=== PATIENT | male | born 1945 | race Caucasian/White ===

== ENCOUNTER 2018-12-27 08:07 | Outpatient (CLI) | payer MEDICARE, OTHER ==
[2018-12-27 14:19] LABS: ALT ALANINE AMINOTRANSFERASE 21 IU/L (10-60); AST ASPARTATE AMINOTRANSFERASE 24 IU/L (10-42); CHOL/HDL RATIO 3.8 (<5.0); CHOLESTEROL 138 mg/dL; CREATININE 1.5 mg/dL (0.6-1.2); GFR - MDRD 46 (>89); HDL CHOLESTEROL 36 mg/dL; LDL CHOLESTEROL,CALCULATED 67 mg/dL; LDL/HDL RATIO 1.9 (<3.6); VLDL CHOLESTEROL 35 mg/dL
[2018-12-27 15:45] LABS: HB2 TOTAL 14.8 g/dL; HEMOGLOBIN A1C % 8.3 % (4.6-6.2)
== END 2018-12-27 08:08 | disposition home or self-care (01) ==
LOC: LAB.F 08:07
PROVIDERS: ATTEND Internal Medicine
DX: E11.9 Type 2 diabetes mellitus without complications (principal); E03.9 Hypothyroidism, unspecified; E78.5 Hyperlipidemia, unspecified
CPT/HCPCS: 36415; 80061; 82043; 82565; 83036; 83721; 84443; 84450; 84460

== ENCOUNTER 2019-02-09 08:03 | Outpatient (CLI) | payer MEDICARE, OTHER ==
--- NOTE | 2019-02-09 17:01 | MRI Report ---
Reason: PAIN IN LEFT SHOULDER Procedure Date: 02/09/2019 Accession Number: [id number] / [id number] Procedure: MRI - Shoulder LT W/O CPT Code: FULL RESULT: EXAM: LEFT SHOULDER MRI WITHOUT CONTRAST EXAM DATE: 02/09/2019 08:59 AM. CLINICAL HISTORY: Left shoulder pain. Difficulty raising upper limb and extending it. No history of trauma. COMPARISON: SHOULDER 3 VIEW LT 01/30/2019 3:30 PM. TECHNIQUE: Multiplanar, multisequence T1-weighted and fluid-sensitive sequences of the shoulder without contrast. Other: None. FINDINGS: Acromioclavicular Region: The acromion is type II. The acromioclavicular joint is unremarkable. No subacromial/subdeltoid bursal fluid. Glenohumeral Region: There is a large joint effusion. There is thickening of the synovium consistent with synovitis. There is moderate erosion of the glenohumeral cartilage. Bone Marrow: There is sclerosis and collapse of the head of the humerus at the level of the anatomic neck. The findings suggest prior avascular necrosis or fracture of the anatomic neck. There is severe marrow edema in the greater and lesser tuberosity and proximal humeral shaft. There is early fragmentation of the humeral head. Focal marrow edema in the inferior aspect of the bony glenoid. Labrum: The labrum is unremarkable on this nonarthrographic study. Musculature/Rotator Cuff: There is supraspinatus and infraspinatus tendinosis. There is mild subscapularis tendinosis. There is mild atrophy of supraspinatus and infraspinatus. Biceps Tendon: The long head of the biceps tendon and biceps tasha are intact. Other: The subcutaneous tissues are unremarkable. IMPRESSION: 1. 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 2. Moderate glenohumeral osteoarthritis. [facility] MUSCULOSKELETAL RADIOLOGY SECTION
== END 2019-02-09 08:04 | disposition home or self-care (01) ==
LOC: DI 08:03
PROVIDERS: ATTEND Orthopaedic Surgery Sports Medicine
DX: M19.012 Primary osteoarthritis, left shoulder (principal); M25.412 Effusion, left shoulder; M75.82 Other shoulder lesions, left shoulder

== ENCOUNTER 2019-03-09 13:28 | Outpatient (CLI) | payer MEDICARE, OTHER ==
[2019-03-09] MEDS ORDERED: BUFFERED LIDOCAINE 10 ML SYRINGE ONE (13:46)
[2019-03-09] MEDS ORDERED: IOTHALAMATE MEGLUMINE 50 ML VIAL ONE (13:46)
[2019-03-09] MEDS ORDERED: IOTHALAMATE MEGLUMINE 50 ML VIAL IVP ONE (14:29)
[2019-03-09] MEDS ORDERED: ROPIVACAINE 0.2% PF 20 ML AMPULE SUBQ ONE (14:29)
[2019-03-09] MEDS ORDERED: BUFFERED LIDOCAINE 10 ML SYRINGE IU ONE (14:29)
[2019-03-09] MEDS ORDERED: TRIAMCINOLONE 40 MG/ML VIAL IM ONE (14:29)
--- NOTE | 2019-03-09 15:16 | XRAY Report ---
Reason: STIFFNESS OF LEFT SHOULDER Procedure Date: 03/09/2019 Accession Number: [id number] / [id number] Procedure: [place] - Inj/Aspiration Major Joint CPT Code: FULL RESULT: EXAM:V LEFT SHOULDER STEROID INJECTION WITH FLUOROSCOPIC GUIDANCE EXAM DATE: 03/09/2019 02:17 PM. CLINICAL HISTORY: Stiffness of left shoulder. COMPARISON: None. TECHNIQUE: The risks, benefits, and alternatives of the procedure were discussed with the patient. All questions were answered. Written and verbal consent were obtained. The glenohumeral joint was marked under fluoroscopy and prepped and draped in a sterile manner. Local anesthesia was performed with 1% lidocaine. A 22-gauge needle was then inserted into the glenohumeral joint. 5 mL of a solution containing 1 mL 40 mg triamcinolone and 0.05% ropivacaine 4 mL was then injected. The needle was removed without immediate complication. Other: None. Fluoroscopy Time: 1 second. Number of Images: 3. FINDINGS: Bones and joints: No fracture or subluxation. Injection: Fluoroscopic images demonstrate needle placement and contrast in the glenohumeral joint. No contrast extravasation outside of the glenohumeral joint. IMPRESSION: Successful fluoroscopically guided steroid injection of the shoulder. [facility]
== END 2019-03-09 13:29 | disposition home or self-care (01) ==
LOC: DI 13:28
PROVIDERS: ATTEND Orthopaedic Surgery Sports Medicine
DX: M25.612 Stiffness of left shoulder, not elsewhere classified (principal)
CPT/HCPCS: 20610; Q9961

== ENCOUNTER 2019-06-21 09:14 | Outpatient (CLI) | payer MEDICARE, OTHER ==
[2019-06-21 09:39] LABS: HGB - HEMOGLOBIN 14.3 g/dL (14.0-18.0); MEAN CORPUSCULAR HEMOGLOBIN 31.2 pg (27.0-31.0); MEAN CORPUSCULAR HGB CONC 34.3 g/dL (32.0-36.0); MEAN PLATELET VOLUME 10.3 fL (7.4-11.4); RED BLOOD COUNT 4.58 10^6/uL (4.70-6.10); RED CELL DISTRIBUTION WIDTH 13.3 % (12.0-15.0); WHITE BLOOD COUNT 4.8 x10^3/uL (4.8-10.8)
[2019-06-21 09:50] LABS: INR 1.1 (0.8-1.2); PT - PROTHROMBIN TIME 12.8 secs (9.9-12.6)
[2019-06-21 09:52] LABS: BILIRUBIN,URINE NEGATIVE (NEGATIVE); GLUCOSE, URINE (UA) NEGATIVE (NEGATIVE); KETONES,URINE (UA) NEGATIVE (NEGATIVE); LEUKOCYTE ESTERASE, URINE NEGATIVE (NEGATIVE); NITRITE,URINE NEGATIVE (NEGATIVE); OCCULT BLOOD,URINE NEGATIVE (NEGATIVE); PH,URINE 5.5 PH (5.0-7.5); PROTEIN,URINE NEGATIVE (NEGATIVE); UROBILINOGEN,URINE 0.2 (NORMAL) E.U./dL (NORMAL)
[2019-06-21 09:55] LABS: CLARITY,URINE CLEAR (CLEAR)
[2019-06-21 09:57] LABS: ALBUMIN 4.2 g/dL (3.2-5.5); ALBUMIN/GLOBULIN RATIO 1.5 (1.0-2.2); ALKALINE PHOSPHATASE 74 IU/L (42-121); ALT ALANINE AMINOTRANSFERASE 35 IU/L (10-60); AST ASPARTATE AMINOTRANSFERASE 33 IU/L (10-42); BUN - BLOOD UREA NITROGEN 24 mg/dL (6-20); CALCIUM 9.7 mg/dL (8.5-10.3); CARBON DIOXIDE - CO2 25 mmol/L (21-32); CHLORIDE 105 mmol/L (101-111); CHOL/HDL RATIO 3.4 (<5.0); CHOLESTEROL 129 mg/dL; CREATININE 1.1 mg/dL (0.6-1.2); GFR - MDRD 66 (>89); GLUCOSE 127 mg/dL (70-100); HDL CHOLESTEROL 38 mg/dL; LDL CHOLESTEROL,CALCULATED 68 mg/dL; LDL/HDL RATIO 1.8 (<3.6); SODIUM 141 mmol/L (135-145); VLDL CHOLESTEROL 23 mg/dL
[2019-06-21 09:58] LABS: PARTIAL THROMBOPLASTIN TIME 26.5 secs (24.9-33.3)
[2019-06-21 10:06] LABS: HB2 TOTAL 14.6 g/dL; HEMOGLOBIN A1C 1.25 g/dL
== END 2019-06-21 09:15 | disposition home or self-care (01) ==
LOC: LAB 09:14
PROVIDERS: ATTEND Internal Medicine
DX: Z01.818 Encounter for other preprocedural examination (principal); M19.112 Post-traumatic osteoarthritis, left shoulder; E11.9 Type 2 diabetes mellitus without complications; Z79.4 Long term (current) use of insulin; E78.5 Hyperlipidemia, unspecified; E03.9 Hypothyroidism, unspecified
CPT/HCPCS: 36415; 80053; 80061; 81001; 81003; 83036; 83721; 84443; 85027; 85610; 85730; 87086; 87640

== ENCOUNTER 2019-07-31 07:43 | Outpatient (CLI) | payer MEDICARE, OTHER ==
[2019-07-31 08:14] LABS: BILIRUBIN,URINE NEGATIVE (NEGATIVE); GLUCOSE, URINE (UA) NEGATIVE (NEGATIVE); KETONES,URINE (UA) NEGATIVE (NEGATIVE); LEUKOCYTE ESTERASE, URINE NEGATIVE (NEGATIVE); NITRITE,URINE NEGATIVE (NEGATIVE); OCCULT BLOOD,URINE NEGATIVE (NEGATIVE); PROTEIN,URINE NEGATIVE (NEGATIVE); UROBILINOGEN,URINE 0.2 (NORMAL) E.U./dL (NORMAL)
[2019-07-31 08:20] LABS: CLARITY,URINE CLEAR (CLEAR)
[2019-07-31 08:29] LABS: INR 1.2 (0.8-1.2); PT - PROTHROMBIN TIME 13.1 secs (9.9-12.6)
[2019-07-31 08:37] LABS: ALBUMIN 4.4 g/dL (3.2-5.5); ALBUMIN/GLOBULIN RATIO 1.6 (1.0-2.2); ALKALINE PHOSPHATASE 61 IU/L (42-121); ALT ALANINE AMINOTRANSFERASE 32 IU/L (10-60); AST ASPARTATE AMINOTRANSFERASE 36 IU/L (10-42); BILIRUBIN,TOTAL 0.8 mg/dL (0.2-1.0); BUN - BLOOD UREA NITROGEN 31 mg/dL (6-20); CARBON DIOXIDE - CO2 27 mmol/L (21-32); CHLORIDE 106 mmol/L (101-111); CHOL/HDL RATIO 3.3 (<5.0); CHOLESTEROL 113 mg/dL; CREATININE 1.3 mg/dL (0.6-1.2); GFR - MDRD 54 (>89); GLUCOSE 116 mg/dL (70-100); HDL CHOLESTEROL 34 mg/dL; LDL CHOLESTEROL,CALCULATED 62 mg/dL; LDL/HDL RATIO 1.8 (<3.6); PARTIAL THROMBOPLASTIN TIME 30.4 secs (24.9-33.3); SODIUM 140 mmol/L (135-145); TOTAL PROTEIN 7.1 g/dL (6.7-8.2); VLDL CHOLESTEROL 17 mg/dL
[2019-07-31 08:43] LABS: HB2 TOTAL 14.1 g/dL; HEMOGLOBIN A1C 0.73 g/dL; HEMOGLOBIN A1C % 6.9 % (4.6-6.2)
[2019-07-31 08:44] LABS: HGB - HEMOGLOBIN 13.5 g/dL (14.0-18.0); MEAN CORPUSCULAR HEMOGLOBIN 30.1 pg (27.0-31.0); MEAN CORPUSCULAR HGB CONC 33.2 g/dL (32.0-36.0); MEAN CORPUSCULAR VOLUME 90.8 fL (80.0-94.0); MEAN PLATELET VOLUME 10.7 fL (7.4-11.4); RED BLOOD COUNT 4.48 10^6/uL (4.70-6.10); RED CELL DISTRIBUTION WIDTH 13.3 % (12.0-15.0); WHITE BLOOD COUNT 3.8 x10^3/uL (4.8-10.8)
== END 2019-07-31 07:44 | disposition home or self-care (01) ==
LOC: LAB 07:43
PROVIDERS: ATTEND Internal Medicine
DX: E11.9 Type 2 diabetes mellitus without complications (principal); Z79.4 Long term (current) use of insulin; E78.5 Hyperlipidemia, unspecified; M19.112 Post-traumatic osteoarthritis, left shoulder; T14.90XS Injury, unspecified, sequela; E03.9 Hypothyroidism, unspecified
CPT/HCPCS: 36415; 80053; 80061; 81001; 81003; 83036; 83721; 84443; 85027; 85610; 85730; 87086

== ENCOUNTER 2020-02-28 07:59 | Outpatient (CLI) | payer MEDICARE, OTHER ==
[2020-02-28 08:26] LABS: HB2 TOTAL 13.9 g/dL; HEMOGLOBIN A1C 0.63 g/dL; HEMOGLOBIN A1C % 6.3 % (4.6-6.2)
[2020-02-28 08:29] LABS: ALBUMIN 4.3 g/dL (3.2-5.5); ALBUMIN/GLOBULIN RATIO 1.6 (1.0-2.2); ALKALINE PHOSPHATASE 64 IU/L (42-121); ALT ALANINE AMINOTRANSFERASE 29 IU/L (10-60); AST ASPARTATE AMINOTRANSFERASE 33 IU/L (10-42); BILIRUBIN,TOTAL 0.8 mg/dL (0.2-1.0); BUN - BLOOD UREA NITROGEN 30 mg/dL (6-20); CALCIUM 8.5 mg/dL (8.5-10.3); CARBON DIOXIDE - CO2 26 mmol/L (21-32); CHLORIDE 107 mmol/L (101-111); CHOL/HDL RATIO 4.2 (<5.0); CHOLESTEROL 126 mg/dL; CREATININE 1.5 mg/dL (0.6-1.2); GLUCOSE 119 mg/dL (70-100); HDL CHOLESTEROL 30 mg/dL; LDL CHOLESTEROL,CALCULATED 59 mg/dL; SODIUM 137 mmol/L (135-145); VLDL CHOLESTEROL 37 mg/dL
== END 2020-02-28 08:00 | disposition home or self-care (01) ==
LOC: LAB 07:59
PROVIDERS: ATTEND Internal Medicine
DX: E78.5 Hyperlipidemia, unspecified (principal); E11.9 Type 2 diabetes mellitus without complications; E03.9 Hypothyroidism, unspecified; Z79.4 Long term (current) use of insulin
CPT/HCPCS: 36415; 80053; 80061; 83036; 83721; 84443

== ENCOUNTER 2020-07-29 08:32 | Outpatient (CLI) | payer MEDICARE, OTHER ==
[2020-07-29 09:11] LABS: ALBUMIN 3.4 g/dL (3.2-5.5); ALBUMIN/GLOBULIN RATIO 1.3 (1.0-2.2); ALKALINE PHOSPHATASE 57 IU/L (42-121); ALT ALANINE AMINOTRANSFERASE 24 IU/L (10-60); AST ASPARTATE AMINOTRANSFERASE 29 IU/L (10-42); BUN - BLOOD UREA NITROGEN 22 mg/dL (6-20); CARBON DIOXIDE - CO2 28 mmol/L (21-32); CHLORIDE 98 mmol/L (101-111); CHOLESTEROL 143 mg/dL; CREATININE 1.3 mg/dL (0.6-1.2); GLUCOSE 144 mg/dL (70-100); HDL CHOLESTEROL 36 mg/dL; LDL CHOLESTEROL,CALCULATED 78 mg/dL; LDL/HDL RATIO 2.2 (<3.6); SODIUM 135 mmol/L (135-145); VLDL CHOLESTEROL 29 mg/dL
[2020-07-29 10:11] LABS: HEMOGLOBIN A1c% 6.9 % (4.27-6.07)
== END 2020-07-29 08:33 | disposition home or self-care (01) ==
LOC: LAB 08:32
PROVIDERS: ATTEND Internal Medicine
DX: E78.5 Hyperlipidemia, unspecified (principal); E11.9 Type 2 diabetes mellitus without complications; Z79.4 Long term (current) use of insulin; E03.9 Hypothyroidism, unspecified
CPT/HCPCS: 36415; 80053; 80061; 83036; 83721; 84443

== ENCOUNTER 2020-12-18 08:04 | Outpatient (CLI) | payer MEDICARE, OTHER ==
[2020-12-18 08:38] LABS: BASOPHILS % (AUTO) 1.1 %; EOSINOPHILS # (AUTO) 0.2 10^3/uL (0.0-0.7); EOSINOPHILS % (AUTO) 5.6 %; LYMPHOCYTES # (AUTO) 0.3 10^3/uL (1.5-3.5); LYMPHOCYTES % (AUTO) 7.8 %; MEAN CORPUSCULAR HEMOGLOBIN 31.6 pg (27.0-31.0); MEAN CORPUSCULAR HGB CONC 34.3 g/dL (32.0-36.0); MEAN PLATELET VOLUME 10.3 fL (7.4-11.4); MONOCYTES # (AUTO) 0.3 10^3/uL (0.0-1.0); MONOCYTES % (AUTO) 8.9 %; NEUTROPHILS # (AUTO) 2.7 10^3/uL (1.5-6.6); NEUTROPHILS % (AUTO) 76.3 %; PLT - PLATELET COUNT 122 10^3/uL (130-450); RED BLOOD COUNT 4.75 10^6/uL (4.70-6.10); RED CELL DISTRIBUTION WIDTH 13.1 % (12.0-15.0); WHITE BLOOD COUNT 3.6 x10^3/uL (4.8-10.8)
[2020-12-18 09:23] LABS: ALBUMIN/GLOBULIN RATIO 1.4 (1.0-2.2); ALKALINE PHOSPHATASE 88 IU/L (42-121); ALT ALANINE AMINOTRANSFERASE 28 IU/L (10-60); AST ASPARTATE AMINOTRANSFERASE 34 IU/L (10-42); BILIRUBIN,TOTAL 0.7 mg/dL (0.2-1.0); BUN - BLOOD UREA NITROGEN 18 mg/dL (6-20); CALCIUM 8.6 mg/dL (8.5-10.3); CARBON DIOXIDE - CO2 23 mmol/L (21-32); CHLORIDE 104 mmol/L (101-111); CHOL/HDL RATIO 5.1 (<5.0); CHOLESTEROL 163 mg/dL; CREATININE 1.2 mg/dL (0.6-1.2); GLUCOSE 262 mg/dL (70-100); HDL CHOLESTEROL 32 mg/dL; LDL CHOLESTEROL,CALCULATED 57 mg/dL; LDL/HDL RATIO 1.8 (<3.6); TOTAL PROTEIN 5.2 g/dL (6.7-8.2); VLDL CHOLESTEROL 74 mg/dL
[2020-12-18 12:46] LABS: FREE T4 (FREE THYROXINE) 0.95 ng/dL (0.58-1.64)
[2020-12-18 12:51] LABS: HEMOGLOBIN A1c% 9.1 % (4.27-6.07)
== END 2020-12-18 08:05 | disposition home or self-care (01) ==
LOC: LAB 08:04
PROVIDERS: ATTEND Internal Medicine
DX: E11.9 Type 2 diabetes mellitus without complications (principal); I10 Essential (primary) hypertension; E78.5 Hyperlipidemia, unspecified; E03.9 Hypothyroidism, unspecified; Z79.4 Long term (current) use of insulin
CPT/HCPCS: 36415; 80053; 80061; 83036; 83721; 84439; 84443; 85025

== ENCOUNTER 2021-03-26 07:36 | Outpatient (CLI) | payer MEDICARE, OTHER ==
[2021-03-26 07:56] LABS: BASOPHILS % (AUTO) 0.9 %; EOSINOPHILS # (AUTO) 0.3 10^3/uL (0.0-0.7); EOSINOPHILS % (AUTO) 5.8 %; HCT - HEMATOCRIT 39.6 % (42.0-52.0); HGB - HEMOGLOBIN 13.6 g/dL (14.0-18.0); LYMPHOCYTES # (AUTO) 0.3 10^3/uL (1.5-3.5); LYMPHOCYTES % (AUTO) 7.4 %; MEAN CORPUSCULAR HEMOGLOBIN 30.7 pg (27.0-31.0); MEAN CORPUSCULAR HGB CONC 34.3 g/dL (32.0-36.0); MEAN CORPUSCULAR VOLUME 89.4 fL (80.0-94.0); MEAN PLATELET VOLUME 9.9 fL (7.4-11.4); MONOCYTES # (AUTO) 0.4 10^3/uL (0.0-1.0); MONOCYTES % (AUTO) 8.5 %; NEUTROPHILS # (AUTO) 3.3 10^3/uL (1.5-6.6); NEUTROPHILS % (AUTO) 76.2 %; PLT - PLATELET COUNT 140 10^3/uL (130-450); RED BLOOD COUNT 4.43 10^6/uL (4.70-6.10); RED CELL DISTRIBUTION WIDTH 12.7 % (12.0-15.0); WHITE BLOOD COUNT 4.3 x10^3/uL (4.8-10.8)
[2021-03-26 08:13] LABS: ALBUMIN 3.4 g/dL (3.2-5.5); ALBUMIN/GLOBULIN RATIO 1.4 (1.0-2.2); ALKALINE PHOSPHATASE 87 IU/L (42-121); ALT ALANINE AMINOTRANSFERASE 26 IU/L (10-60); AST ASPARTATE AMINOTRANSFERASE 26 IU/L (10-42); BILIRUBIN,TOTAL 0.9 mg/dL (0.2-1.0); BUN - BLOOD UREA NITROGEN 21 mg/dL (6-20); CALCIUM 8.8 mg/dL (8.5-10.3); CARBON DIOXIDE - CO2 25 mmol/L (21-32); CHLORIDE 107 mmol/L (101-111); CHOL/HDL RATIO 4.6 (<5.0); CHOLESTEROL 128 mg/dL; CREATININE 0.9 mg/dL (0.6-1.2); GFR - MDRD 82 (>89); GLUCOSE 197 mg/dL (70-100); HDL CHOLESTEROL 28 mg/dL; LDL CHOLESTEROL,CALCULATED 58 mg/dL; LDL/HDL RATIO 2.1 (<3.6); POTASSIUM 4.6 mmol/L (3.5-5.0); SODIUM 138 mmol/L (135-145); TOTAL PROTEIN 5.9 g/dL (6.7-8.2); TRIGLYCERIDES 210 mg/dL; VLDL CHOLESTEROL 42 mg/dL
[2021-03-26 08:23] LABS: THYROID STIMULATING HORMONE 5.72 uIU/mL (0.34-5.60)
[2021-03-26 08:55] LABS: FREE T4 (FREE THYROXINE) 0.98 ng/dL (0.58-1.64)
[2021-03-26 11:07] LABS: ESTIMATED AVERAGE GLUCOSE 157 mg/dL (70-100); HEMOGLOBIN A1c% 7.1 % (4.27-6.07)
== END 2021-03-26 07:37 | disposition home or self-care (01) ==
LOC: LAB 07:36
PROVIDERS: ATTEND Internal Medicine
DX: I10 Essential (primary) hypertension (principal); E11.9 Type 2 diabetes mellitus without complications; E78.5 Hyperlipidemia, unspecified; E03.9 Hypothyroidism, unspecified
CPT/HCPCS: 36415; 80053; 80061; 83036; 83721; 84439; 84443; 85025

== ENCOUNTER 2021-04-28 09:51 | Outpatient (CLI) | payer MEDICARE, OTHER | END 2021-04-28 09:52 | disposition home or self-care (01) | LOC: LAB 09:51 | PROVIDERS: ATTEND Urology | DX: Z85.46 Personal history of malignant neoplasm of prostate (principal); Z90.79 Acquired absence of other genital organ(s) | CPT/HCPCS: 36415; 84153 ==

== ENCOUNTER 2021-06-25 07:14 | Outpatient (CLI) | payer MEDICARE, OTHER ==
[2021-06-25] MEDS ORDERED: IOVERSOL 320 50 ML VIAL ONE (07:28)
[2021-06-25] MEDS ORDERED: IOPAMIDOL-300 100 ML VIAL ONE (07:28)
[2021-06-25 07:59] LABS: BASOPHILS % (AUTO) 0.9 %; EOSINOPHILS # (AUTO) 0.3 10^3/uL (0.0-0.7); EOSINOPHILS % (AUTO) 6.9 %; HCT - HEMATOCRIT 44.5 % (42.0-52.0); HGB - HEMOGLOBIN 15.2 g/dL (14.0-18.0); LYMPHOCYTES # (AUTO) 0.4 10^3/uL (1.5-3.5); LYMPHOCYTES % (AUTO) 9.4 %; MEAN CORPUSCULAR HEMOGLOBIN 29.9 pg (27.0-31.0); MEAN CORPUSCULAR HGB CONC 34.2 g/dL (32.0-36.0); MEAN CORPUSCULAR VOLUME 87.4 fL (80.0-94.0); MEAN PLATELET VOLUME 10.8 fL (7.4-11.4); MONOCYTES # (AUTO) 0.4 10^3/uL (0.0-1.0); MONOCYTES % (AUTO) 8.7 %; NEUTROPHILS # (AUTO) 3.3 10^3/uL (1.5-6.6); NEUTROPHILS % (AUTO) 73.9 %; PLT - PLATELET COUNT 101 10^3/uL (130-450); RED BLOOD COUNT 5.09 10^6/uL (4.70-6.10); RED CELL DISTRIBUTION WIDTH 12.2 % (12.0-15.0); WHITE BLOOD COUNT 4.5 x10^3/uL (4.8-10.8)
[2021-06-25 08:37] LABS: ALBUMIN 3.4 g/dL (3.2-5.5); ALBUMIN/GLOBULIN RATIO 1.4 (1.0-2.2); ALKALINE PHOSPHATASE 76 IU/L (42-121); ALT ALANINE AMINOTRANSFERASE 29 IU/L (10-60); AST ASPARTATE AMINOTRANSFERASE 31 IU/L (10-42); BUN - BLOOD UREA NITROGEN 16 mg/dL (6-20); CALCIUM 8.9 mg/dL (8.5-10.3); CARBON DIOXIDE - CO2 26 mmol/L (21-32); CHLORIDE 103 mmol/L (101-111); CHOL/HDL RATIO 4.7 (<5.0); CHOLESTEROL 168 mg/dL; GFR - MDRD 73 (>89); GLUCOSE 307 mg/dL (70-100); HDL CHOLESTEROL 36 mg/dL; LDL CHOLESTEROL,CALCULATED 99 mg/dL; LDL/HDL RATIO 2.8 (<3.6); POTASSIUM 4.3 mmol/L (3.5-5.0); SODIUM 137 mmol/L (135-145); TOTAL PROTEIN 5.8 g/dL (6.7-8.2); TRIGLYCERIDES 163 mg/dL; VLDL CHOLESTEROL 33 mg/dL
[2021-06-25 08:49] LABS: THYROID STIMULATING HORMONE 5.93 uIU/mL (0.34-5.60)
[2021-06-25] MEDS ORDERED: IOVERSOL 320 50 ML VIAL PO ONE (09:09)
[2021-06-25] MEDS ORDERED: IOPAMIDOL-300 100 ML VIAL IVP ONE (09:10)
[2021-06-25 09:33] LABS: FREE T4 (FREE THYROXINE) 0.86 ng/dL (0.58-1.64)
--- NOTE | 2021-06-25 10:15 | CT Report ---
PROCEDURE: Abdomen/Pelvis W INDICATIONS: ABD PAIN CONTRAST: IV CONTRAST: Isovue 300 ml: 100 PO CONTRAST: Optiray 320 ml50 TECHNIQUE: After the administration of oral and intravenous contrast, 5 mm thick sections acquired from the diap hragms to the symphysis. 5 mm thick coronal and sagittal reformats were acquired. For radiation dos e reduction, the following was used: automated exposure control, adjustment of mA and/or kV accordin g to patient size. COMPARISON: None. FINDINGS: Image quality: Excellent. ABDOMEN: Lung bases: Lung bases are clear. Heart size is normal. Solid organs: Liver is within normal limits in size. Question of hepatic steatosis. No focal lesion. Gallbladder is not distended. Multiple gallstones Biliary system is non dilated. Pancreas enhances normally. Splenomegaly measuring 17.1 cm, (6/38). No adrenal nodules. Kidneys enhance symmetrically . There is multifocal scarring of the right kidney. No solid renal mass. Peritoneum and bowel: There is stranding about the right and transverse colon. There is associated c olonic wall thickening. Small volume free fluid. The stomach is distended with oral contrast. There i s no small bowel obstruction. Oral contrast transits to the level of the cecum. The appendix is not d istended. Nodes and vessels: Prominent mesenteric lymph nodes. No enlarged retroperitoneal lymph nodes. Clips i n the right abdomen. Bilateral pelvic sidewall lymph node dissection. Minimal aortic ectasia. Circumf erential calcified atherosclerotic plaque. Miscellaneous: No ventral hernias. PELVIS: Genitourinary: Bladder is only partially distended. Increased density of the urine. There is a mean prosthesis with a reservoir in the right lower quadrant. Prostate gland appears to be surgically abse nt. Miscellaneous: No inguinal hernias or adenopathy. Bones: No suspicious bony lesions. Mild degenerative change. No vertebral body compression fractures . IMPRESSION: 1. Suspect right/proximal transverse colitis. Mild ascites. No pneumoperitoneum. 2. Prominent mesenteric lymph nodes. Suspect reactive etiology. 3. Prostatectomy. Pelvic sidewall lymph node dissection. No sclerotic osseous lesions seen. Penile pr osthesis. 4. Gallstones. 5. Right renal scarring. No hydronephrosis. 6. Splenomegaly. Preliminary results were conveyed to Jasmin on behalf of Dr. Hu at 06/25/2021 10:06 AM PDT. Reviewed by: Gustavo Grady MD on 06/25/2021 10:14 AM PDT Approved by: Gustavo Grady MD on 06/25/2021 10:14 AM PDT Station ID: [id number]
[2021-06-25 12:24] LABS: ESTIMATED AVERAGE GLUCOSE 232 mg/dL (70-100); HEMOGLOBIN A1c% 9.7 % (4.27-6.07)
== END 2021-06-25 07:15 | disposition home or self-care (01) ==
LOC: LAB 07:14
PROVIDERS: ATTEND Internal Medicine
DX: I10 Essential (primary) hypertension (principal); R10.9 Unspecified abdominal pain; E78.5 Hyperlipidemia, unspecified; E11.9 Type 2 diabetes mellitus without complications; E03.9 Hypothyroidism, unspecified; Z79.4 Long term (current) use of insulin; R18.8 Other ascites; R59.0 Localized enlarged lymph nodes; Z90.79 Acquired absence of other genital organ(s); Z96.0 Presence of urogenital implants; K80.20 Calculus of gallbladder without cholecystitis without obstruction; R16.1 Splenomegaly, not elsewhere classified
CPT/HCPCS: 36415; 74177; 80053; 80061; 83036; 84439; 84443; 85025; Q9967; 83721

== ENCOUNTER 2021-06-28 08:00 | Outpatient (CLI) | payer MEDICARE, OTHER ==
[2021-07-02 10:00] LABS: FECAL OCCULT BLOOD (FIT) NEGATIVE (NEGATIVE)
== END 2021-06-28 23:59 | disposition home or self-care (01) ==
LOC: LAB.R 08:00
PROVIDERS: ATTEND Internal Medicine
DX: Z12.11 Encounter for screening for malignant neoplasm of colon (principal)
CPT/HCPCS: 82274

== ENCOUNTER 2021-09-15 08:00 | Outpatient (CLI) | payer MEDICARE, OTHER ==
[2021-09-15 09:00] LABS: EOSINOPHILS # (AUTO) 0.2 10^3/uL (0.0-0.7); EOSINOPHILS % (AUTO) 5.5 %; HGB - HEMOGLOBIN 13.8 g/dL (14.0-18.0); LYMPHOCYTES # (AUTO) 0.4 10^3/uL (1.5-3.5); LYMPHOCYTES % (AUTO) 8.9 %; MEAN CORPUSCULAR HEMOGLOBIN 29.9 pg (27.0-31.0); MEAN CORPUSCULAR HGB CONC 33.7 g/dL (32.0-36.0); MEAN CORPUSCULAR VOLUME 88.9 fL (80.0-94.0); MEAN PLATELET VOLUME 10.5 fL (7.4-11.4); MONOCYTES # (AUTO) 0.3 10^3/uL (0.0-1.0); MONOCYTES % (AUTO) 8.2 %; NEUTROPHILS # (AUTO) 3.1 10^3/uL (1.5-6.6); NEUTROPHILS % (AUTO) 76.2 %; PLT - PLATELET COUNT 89 10^3/uL (130-450); RED BLOOD COUNT 4.61 10^6/uL (4.70-6.10); RED CELL DISTRIBUTION WIDTH 13.3 % (12.0-15.0)
[2021-09-15 09:04] LABS: CREATININE,URINE 261.7 mg/dL; MICROALBUM/CREATININE RATIO,UR 8.4 ug/mg (<30.0); MICROALBUMIN,URINE 2.2 mg/dL (0-300.0)
[2021-09-15 09:29] LABS: ALBUMIN 3.7 g/dL (3.2-5.5); ALBUMIN/GLOBULIN RATIO 1.5 (1.0-2.2); BILIRUBIN,TOTAL 1.2 mg/dL (0.2-1.0); CALCIUM 9.5 mg/dL (8.5-10.3); POTASSIUM 4.3 mmol/L (3.5-5.0); TOTAL PROTEIN 6.1 g/dL (6.7-8.2)
[2021-09-15 09:54] LABS: INR 1.2 (0.8-1.2); PT - PROTHROMBIN TIME 13.1 secs (9.9-12.6)
[2021-09-15 13:24] LABS: ESTIMATED AVERAGE GLUCOSE 212 mg/dL (70-100)
[2021-09-16 09:21] LABS: HEPATITIS B SURFACE ANTIGEN NON-REACTIVE (NON-REACTIVE)
[2021-09-16 09:22] LABS: HEPATITIS B CORE AB TOTAL REACTIVE (NON-REACTIVE)
[2021-09-17 10:01] LABS: IMMUNOGLOBULIN A 211 mg/dL (70-320); IMMUNOGLOBULIN G 528 mg/dL (600-1540); IMMUNOGLOBULIN M 74 mg/dL (50-300)
[2021-09-17 13:36] LABS: CERULOPLASMIN 27 mg/dL (18-36)
[2021-09-19 07:52] LABS: ANA PATTERN Nuclear, Homogeneous; ANA SCREEN POSITIVE (NEGATIVE)
[2021-09-23 22:06] LABS: HEPATITIS C VIRAL RNA GENOTYPE NOT DETECTED
== END 2021-09-15 08:01 | disposition home or self-care (01) ==
LOC: LAB 08:00
PROVIDERS: ATTEND Internal Medicine Gastroenterology
DX: E11.9 Type 2 diabetes mellitus without complications (principal); D69.6 Thrombocytopenia, unspecified; K74.60 Unspecified cirrhosis of liver; R93.3 Abnormal findings on diagnostic imaging of other parts of digestive tract; E03.9 Hypothyroidism, unspecified; Z79.4 Long term (current) use of insulin
CPT/HCPCS: 36415; 80053; 81599; 82043; 82104; 82105; 82390; 82570; 82784; 83036; 83516; 83520; 83540; 84443; 84466; 85025; 85610; 86038; 86317; 86376; 86704; 87340; 87350; 87902

== ENCOUNTER 2022-02-02 07:27 | Outpatient (CLI) | payer MEDICARE, OTHER ==
[2022-02-02 07:47] LABS: BASOPHILS % (AUTO) 0.9 %; EOSINOPHILS # (AUTO) 0.2 10^3/uL (0.0-0.7); EOSINOPHILS % (AUTO) 4.4 %; HCT - HEMATOCRIT 43.8 % (42.0-52.0); HGB - HEMOGLOBIN 14.9 g/dL (14.0-18.0); LYMPHOCYTES # (AUTO) 0.4 10^3/uL (1.5-3.5); LYMPHOCYTES % (AUTO) 9.5 %; MEAN CORPUSCULAR VOLUME 88.3 fL (80.0-94.0); MONOCYTES # (AUTO) 0.4 10^3/uL (0.0-1.0); MONOCYTES % (AUTO) 8.6 %; NEUTROPHILS # (AUTO) 3.5 10^3/uL (1.5-6.6); NEUTROPHILS % (AUTO) 76.4 %; PLT - PLATELET COUNT 93 10^3/uL (130-450); RED BLOOD COUNT 4.96 10^6/uL (4.70-6.10); RED CELL DISTRIBUTION WIDTH 13.2 % (12.0-15.0); WHITE BLOOD COUNT 4.6 x10^3/uL (4.8-10.8)
[2022-02-02 08:10] LABS: ALBUMIN 3.7 g/dL (3.2-5.5); ALBUMIN/GLOBULIN RATIO 1.4 (1.0-2.2); BILIRUBIN,TOTAL 1.4 mg/dL (0.2-1.0); CALCIUM 8.7 mg/dL (8.5-10.3); POTASSIUM 4.2 mmol/L (3.5-5.0); TOTAL PROTEIN 6.3 g/dL (6.7-8.2)
[2022-02-02 08:26] LABS: THYROID STIMULATING HORMONE 3.97 uIU/mL (0.34-5.60)
[2022-02-02 12:21] LABS: ESTIMATED AVERAGE GLUCOSE 200 mg/dL (70-100); HEMOGLOBIN A1c% 8.6 % (4.27-6.07)
== END 2022-02-02 07:28 | disposition home or self-care (01) ==
LOC: LAB 07:27
PROVIDERS: ATTEND Internal Medicine
DX: E11.9 Type 2 diabetes mellitus without complications (principal); E03.9 Hypothyroidism, unspecified; Z79.4 Long term (current) use of insulin
CPT/HCPCS: 36415; 80053; 83036; 84443; 85025

== ENCOUNTER 2022-08-23 07:21 | Outpatient (CLI) | payer MEDICARE, OTHER ==
[2022-08-23 07:51] LABS: BASOPHILS # (AUTO) 0.1 10^3/uL (0.0-0.1); BASOPHILS % (AUTO) 1.3 %; EOSINOPHILS # (AUTO) 0.2 10^3/uL (0.0-0.7); EOSINOPHILS % (AUTO) 5.8 %; HCT - HEMATOCRIT 38.8 % (42.0-52.0); HGB - HEMOGLOBIN 13.4 g/dL (14.0-18.0); LYMPHOCYTES # (AUTO) 0.5 10^3/uL (1.5-3.5); LYMPHOCYTES % (AUTO) 11.9 %; MEAN CORPUSCULAR HEMOGLOBIN 29.6 pg (27.0-31.0); MEAN CORPUSCULAR HGB CONC 34.5 g/dL (32.0-36.0); MEAN CORPUSCULAR VOLUME 85.7 fL (80.0-94.0); MEAN PLATELET VOLUME 10.3 fL (7.4-11.4); MONOCYTES # (AUTO) 0.4 10^3/uL (0.0-1.0); MONOCYTES % (AUTO) 9.5 %; NEUTROPHILS # (AUTO) 2.7 10^3/uL (1.5-6.6); NEUTROPHILS % (AUTO) 70.4 %; PLT - PLATELET COUNT 74 10^3/uL (130-450); RED BLOOD COUNT 4.53 10^6/uL (4.70-6.10); RED CELL DISTRIBUTION WIDTH 14.2 % (12.0-15.0); WHITE BLOOD COUNT 3.8 x10^3/uL (4.8-10.8)
[2022-08-23 08:09] LABS: MICROALBUM/CREATININE RATIO,UR 25.9 ug/mg (<30.0); MICROALBUMIN,URINE 8.9 mg/dL (0-300.0)
[2022-08-23 08:19] LABS: % IRON SATURATION 14 % (20-50); ALBUMIN 3.8 g/dL (3.2-5.5); ALBUMIN/GLOBULIN RATIO 1.5 (1.0-2.2); ALKALINE PHOSPHATASE 94 IU/L (42-121); ALT ALANINE AMINOTRANSFERASE 31 IU/L (10-60); AST ASPARTATE AMINOTRANSFERASE 31 IU/L (10-42); BILIRUBIN,TOTAL 1.2 mg/dL (0.2-1.0); BUN - BLOOD UREA NITROGEN 18 mg/dL (6-20); CALCIUM 9.3 mg/dL (8.5-10.3); CARBON DIOXIDE - CO2 30 mmol/L (21-32); CHLORIDE 104 mmol/L (101-111); CHOL/HDL RATIO 2.9 (<5.0); CHOLESTEROL 109 mg/dL; GFR - MDRD 73 (>89); GLUCOSE 208 mg/dL (70-100); HDL CHOLESTEROL 37 mg/dL; IRON 48 ug/dL (45-182); LDL CHOLESTEROL,CALCULATED 48 mg/dL; LDL/HDL RATIO 1.3 (<3.6); SODIUM 138 mmol/L (135-145); TOTAL IRON BINDING CAPACITY 354 ug/dL (250-450); TOTAL PROTEIN 6.4 g/dL (6.7-8.2); TRANSFERRIN 253 mg/dL (180-329); TRIGLYCERIDES 122 mg/dL; VLDL CHOLESTEROL 24 mg/dL
[2022-08-23 08:25] LABS: THYROID STIMULATING HORMONE 3.67 uIU/mL (0.34-5.60)
[2022-08-23 08:29] LABS: FERRITIN 81.6 ng/mL (23.9-336.2)
[2022-08-23 12:29] LABS: ESTIMATED AVERAGE GLUCOSE 226 mg/dL (70-100); HEMOGLOBIN A1c% 9.5 % (4.27-6.07)
== END 2022-08-23 07:22 | disposition home or self-care (01) ==
LOC: LAB 07:21
PROVIDERS: ATTEND Internal Medicine
DX: C61 Malignant neoplasm of prostate (principal); K74.69 Other cirrhosis of liver; E78.5 Hyperlipidemia, unspecified; E11.9 Type 2 diabetes mellitus without complications; E03.9 Hypothyroidism, unspecified; Z79.4 Long term (current) use of insulin
CPT/HCPCS: 36415; 80053; 80061; 82043; 82570; 82728; 83036; 83540; 83721; 84153; 84443; 84466; 85025

== ENCOUNTER 2022-09-15 07:54 | Outpatient (CLI) | payer MEDICARE, OTHER ==
[2022-09-15 08:11] LABS: CREATININE 0.9 mg/dL (0.6-1.2)
== END 2022-09-15 07:55 | disposition home or self-care (01) ==
LOC: LAB 07:54
PROVIDERS: ATTEND Internal Medicine
DX: I10 Essential (primary) hypertension (principal)
CPT/HCPCS: 36415; 82565; 84520

== ENCOUNTER 2022-09-21 07:15 | Outpatient (CLI) | payer MEDICARE, OTHER ==
[2022-09-21] MEDS ORDERED: iohexoL-300 100 ML VIAL ONE (07:23)
[2022-09-21] MEDS ORDERED: DIATRIZOATE MEGLU/DIATRIZO SOD 30 ML BOTTLE PO ONE ×2 (07:23→08:49)
[2022-09-21] MEDS ORDERED: iohexoL-300 100 ML VIAL IVP ONE (08:49)
--- NOTE | 2022-09-21 15:32 | CT Report ---
PROCEDURE: ABDOMEN/PELVIS W INDICATIONS: RIGHT LOWER QUAD ABD PAIN CONTRAST: 100ml Omnipaque 300 TECHNIQUE: After the administration of IV and oral contrast, 5 mm thick sections acquired from the diaphragms to the symphysis. 5 mm thick coronal and sagittal reformats were acquired. For radiation dose reducti on, the following was used: automated exposure control, adjustment of mA and/or kV according to janneth ent size. COMPARISON: CT dated 06/25/2021 FINDINGS: Image quality: Excellent. ABDOMEN: Lung bases: Lung bases are clear. Heart size is normal. Solid organs: Liver is normal in size. Spleen is enlarged. Hepatic contour is nodular, suggestive of cirrhosis. Gallbladder demonstrates multiple calculi within its lumen Biliary system is non dilated . Pancreatic body and tail are not seen, as before, suggestive of prior surgery versus fatty replacem ent. No adrenal nodules. Moderate multifocal scarring involves the right kidney, as before. Kidneys demonstrate otherwise normal size and enhancement, without hydronephrosis. Peritoneum and bowel: Bowel loops demonstrate normal wall thickness and caliber. Normal appendix. N o pneumoperitoneum. Trace free fluid within the pelvis. Nodes and vessels: No retroperitoneal or mes enteric adenopathy by size criteria. Aorta and inferior vena cava are normal in size. There is mode rate calcification of the arterial tree. Miscellaneous: No ventral hernias. PELVIS: Genitourinary: Bladder wall thickness is normal. Miscellaneous: No inguinal hernias or adenopathy. Bones: No suspicious bony lesions. No vertebral body compression fractures. IMPRESSION: 1. Cirrhosis. 2. Small amount of ascites. 3. Normal appendix. 4. Cholelithiasis. No evidence of cholecystitis. 5. Right renal scarring. 6. Postsurgical sequelae versus fatty atrophy involving the pancreas as described above. Reviewed by: Calin Espinoza MD on 09/21/2022 3:31 PM PST Approved by: Calin Espinoza MD on 09/21/2022 3:31 PM PST Station ID: [id number]
== END 2022-09-21 07:16 | disposition home or self-care (01) ==
LOC: DI 07:15
PROVIDERS: ATTEND Internal Medicine
DX: K74.69 Other cirrhosis of liver (principal); R16.1 Splenomegaly, not elsewhere classified; K80.20 Calculus of gallbladder without cholecystitis without obstruction; R18.8 Other ascites; N28.89 Other specified disorders of kidney and ureter
CPT/HCPCS: 74177; Q9963; Q9967

== ENCOUNTER 2022-12-24 07:25 | Outpatient (CLI) | payer MEDICARE, OTHER ==
[2022-12-24 07:41] LABS: BASOPHILS % (AUTO) 0.7 %; EOSINOPHILS # (AUTO) 0.2 10^3/uL (0.0-0.7); EOSINOPHILS % (AUTO) 3.6 %; HCT - HEMATOCRIT 42.9 % (42.0-52.0); HGB - HEMOGLOBIN 14.4 g/dL (14.0-18.0); LYMPHOCYTES # (AUTO) 0.6 10^3/uL (1.5-3.5); LYMPHOCYTES % (AUTO) 9.5 %; MEAN CORPUSCULAR HEMOGLOBIN 30.6 pg (27.0-31.0); MEAN CORPUSCULAR HGB CONC 33.6 g/dL (32.0-36.0); MEAN CORPUSCULAR VOLUME 91.3 fL (80.0-94.0); MEAN PLATELET VOLUME 9.3 fL (7.4-11.4); MONOCYTES # (AUTO) 0.5 10^3/uL (0.0-1.0); MONOCYTES % (AUTO) 8.5 %; NEUTROPHILS # (AUTO) 4.7 10^3/uL (1.5-6.6); NEUTROPHILS % (AUTO) 77.2 %; PLT - PLATELET COUNT 72 10^3/uL (130-450)
[2022-12-24 07:59] LABS: ALBUMIN 3.5 g/dL (3.2-5.5); ALBUMIN/GLOBULIN RATIO 1.3 (1.0-2.2); BILIRUBIN,TOTAL 1.2 mg/dL (0.2-1.0); CALCIUM 9.2 mg/dL (8.5-10.3); POTASSIUM 4.3 mmol/L (3.5-5.0); TOTAL PROTEIN 6.2 g/dL (6.7-8.2)
[2022-12-24 08:17] LABS: FERRITIN 58.2 ng/mL (23.9-336.2)
[2022-12-24 12:47] LABS: ESTIMATED AVERAGE GLUCOSE 171 mg/dL (70-100); HEMOGLOBIN A1c% 7.6 % (4.27-6.07)
== END 2022-12-24 07:26 | disposition home or self-care (01) ==
LOC: LAB 07:25
PROVIDERS: ATTEND Internal Medicine
DX: K74.69 Other cirrhosis of liver (principal); D64.9 Anemia, unspecified; E11.9 Type 2 diabetes mellitus without complications
CPT/HCPCS: 36415; 80053; 82607; 82728; 83036; 83540; 84466; 85025

== ENCOUNTER 2023-05-19 07:04 | Outpatient (CLI) | payer MEDICARE, OTHER ==
[2023-05-19 07:29] LABS: ALBUMIN 3.5 g/dL (3.2-5.5); ALBUMIN/GLOBULIN RATIO 1.3 (1.0-2.2); BILIRUBIN,TOTAL 1.5 mg/dL (0.2-1.0); CALCIUM 8.8 mg/dL (8.5-10.3); POTASSIUM 3.9 mmol/L (3.5-5.0); TOTAL PROTEIN 6.3 g/dL (6.7-8.2)
[2023-05-19 08:00] LABS: INR 1.2 (0.8-1.2); PT - PROTHROMBIN TIME 12.8 secs (9.9-12.6)
[2023-05-19 11:42] LABS: ESTIMATED AVERAGE GLUCOSE 160 mg/dL (70-100); HEMOGLOBIN A1c% 7.2 % (4.27-6.07)
== END 2023-05-19 07:05 | disposition home or self-care (01) ==
LOC: LAB 07:04
PROVIDERS: ATTEND Internal Medicine Gastroenterology
DX: D69.6 Thrombocytopenia, unspecified (principal); K74.60 Unspecified cirrhosis of liver; R93.3 Abnormal findings on diagnostic imaging of other parts of digestive tract; E11.9 Type 2 diabetes mellitus without complications
CPT/HCPCS: 36415; 80053; 82105; 83036; 85610

== ENCOUNTER 2023-10-13 07:15 | Outpatient (CLI) | payer MEDICARE, OTHER ==
[2023-10-13 07:35] LABS: BASOPHILS # (AUTO) 0.1 10^3/uL (0.0-0.1); BASOPHILS % (AUTO) 1.2 %; EOSINOPHILS # (AUTO) 0.2 10^3/uL (0.0-0.7); EOSINOPHILS % (AUTO) 4.4 %; HCT - HEMATOCRIT 43.6 % (42.0-52.0); HGB - HEMOGLOBIN 14.7 g/dL (14.0-18.0); LYMPHOCYTES # (AUTO) 0.3 10^3/uL (1.5-3.5); MEAN CORPUSCULAR HEMOGLOBIN 29.9 pg (27.0-31.0); MEAN CORPUSCULAR HGB CONC 33.7 g/dL (32.0-36.0); MEAN CORPUSCULAR VOLUME 88.8 fL (80.0-94.0); MEAN PLATELET VOLUME 9.3 fL (7.4-11.4); MONOCYTES # (AUTO) 0.4 10^3/uL (0.0-1.0); NEUTROPHILS # (AUTO) 3.1 10^3/uL (1.5-6.6); NEUTROPHILS % (AUTO) 75.9 %; PLT - PLATELET COUNT 93 10^3/uL (130-450); RED BLOOD COUNT 4.91 10^6/uL (4.70-6.10); RED CELL DISTRIBUTION WIDTH 13.5 % (12.0-15.0); WHITE BLOOD COUNT 4.1 x10^3/uL (4.8-10.8)
[2023-10-13 07:56] LABS: ALBUMIN 3.9 g/dL (3.2-5.5); ALBUMIN/GLOBULIN RATIO 1.7 (1.0-2.2); BILIRUBIN,TOTAL 1.1 mg/dL (0.2-1.0); CALCIUM 9.3 mg/dL (8.5-10.3); POTASSIUM 4.1 mmol/L (3.5-4.5); TOTAL PROTEIN 6.2 g/dL (6.4-8.9)
[2023-10-13 07:58] LABS: MICROALBUM/CREATININE RATIO,UR 28.6 ug/mg (<30.0); MICROALBUMIN,URINE 6.9 mg/dL
[2023-10-13 08:09] LABS: THYROID STIMULATING HORMONE 3.96 uIU/mL (0.34-5.60)
[2023-10-13 10:57] LABS: ESTIMATED AVERAGE GLUCOSE 160 mg/dL (70-100); HEMOGLOBIN A1c% 7.2 % (4.27-6.07)
== END 2023-10-13 07:16 | disposition home or self-care (01) ==
LOC: LAB 07:15
PROVIDERS: ATTEND Internal Medicine
DX: C61 Malignant neoplasm of prostate (principal); K74.69 Other cirrhosis of liver; E11.9 Type 2 diabetes mellitus without complications; E03.9 Hypothyroidism, unspecified
CPT/HCPCS: 36415; 80053; 82043; 82105; 82570; 83036; 84153; 84443; 85025